=== PATIENT | female | born 1945 | race Caucasian/White ===

== ENCOUNTER → 2016-08-23 | Outpatient (CLI) | payer MEDICARE ==
--- NOTE | 2016-08-23 12:43 | US ---
EXAM DESCRIPTION: US LOWER EXTREMITY VEINS LIMITED/UNILATERAL/FOLLOW UP CLINICAL HISTORY: 71 y/o F, EDEMA COMPARISON: None. FINDINGS: Grayscale, spectral Doppler and color Doppler imaging of the left lower extremity venous structures was performed. Static images were saved to the patient's medical record. Normal compressibility and color Doppler flow noted within the left lower extremity venous structures. IMPRESSION: Negative for DVT within the left lower extremity. Electronically signed by: Dante Mathew MD 08/23/2016 12:41
== END ==
LOC: US 11:12
PROVIDERS: ATTEND Family Medicine
DX: R60.0 Localized edema (principal)

== ENCOUNTER → 2016-08-30 | Outpatient (CLI) | payer MEDICARE ==
--- NOTE | 2016-08-30 09:27 | RAD ---
EXAM DESCRIPTION: XR PELVIS 3 OR MORE VIEWS CLINICAL HISTORY: PELVIC PAIN COMPARISON: 24 February 2016. TECHNIQUE: AP pelvis and bilateral hips. FINDINGS: Mild degenerative changes are observed in the pubic symphysis. No fracture or dislocation is seen. No significant degenerative change is observed. A small bone island is seen overlying the left sacral ala. When direct comparison is made to the previous exam I see no significant interval change. IMPRESSION: Mild degenerative changes are observed. No interval change is noted. Electronically signed by: Tee Booker MD 08/30/2016 09:25
--- NOTE | 2016-08-30 10:19 | RAD ---
EXAM DESCRIPTION: XR TIBIA FIBULA 2 VIEWSXR TIBIA FIBULA 2 VIEWS CLINICAL HISTORY: 71 y/o ,F, PAIN IN LOWER LIMB COMPARISON: MRI from January 14, 2013 IMPRESSION: Evidence of prior medial tibial plateau impaction fracture. This results in medial proximal tibial cortical regularity. No evidence of acute fracture within the left tibia or fibula on today's study. Electronically signed by: Dante Mathew MD 08/30/2016 10:17
== END ==
LOC: RAD 07:55
PROVIDERS: ATTEND Orthopaedic Surgery
DX: M25.552 Pain in left hip (principal); M79.662 Pain in left lower leg; M12.88 Other specific arthropathies, not elsewhere classified, other specified site

== ENCOUNTER → 2016-09-13 | Outpatient (CLI) | payer MEDICARE | LOC: LAB.O 10:04 | PROVIDERS: ATTEND Orthopaedic Surgery | DX: M25.862 Other specified joint disorders, left knee (principal) ==

== ENCOUNTER → 2016-09-14 | Outpatient (CLI) | payer MEDICARE ==
--- NOTE | 2016-09-14 14:22 | MRI ---
EXAM DESCRIPTION: MRI left knee without and with IV contrast CLINICAL HISTORY: 71 y/o F, knee pain, mass COMPARISON: None TECHNIQUE: Noncontrast MR imaging left knee standard protocol FINDINGS: There is advanced chondrosis up to grade 4 throughout the medial tibiofemoral compartment left knee with subchondral edema and cystic change in the medial tibial plateau. Similar but less severe changes in the medial femoral condyle. There is diffuse degeneration the medial meniscus with free edge truncation volume loss and fraying and partial medial extrusion. There are postsurgical changes related to apparent previous resection of a region in the medial aspect proximal tibial metaphysis. There is edema in this area but no aggressive bone destruction is noted. The edema may be extending from the subchondral reactive changes from knee arthrosis. There is only mild enhancement at the resection site likely granulation tissue and reactive tissue/scar. No definite focal mass. There is evidence of grade 4 chondral fissuring in the lateral patellar facet and a dorsal patellar defect area. Overall mild patellofemoral osteoarthrosis. Several areas of grade 4 chondral fissuring are noted in the lateral tibiofemoral compartment as well. Extensor tendons are intact. Cruciate ligaments are intact. A large portion of the posterior horn medial meniscus is absent likely postsurgical. Prominent degenerative signal anterior horn lateral meniscus without major tear. 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
== END ==
LOC: MRI 08:07
PROVIDERS: ATTEND Orthopaedic Surgery
DX: M25.862 Other specified joint disorders, left knee (principal); M17.12 Unilateral primary osteoarthritis, left knee; M94.8X6 Other specified disorders of cartilage, lower leg; Z98.890 Other specified postprocedural states

== ENCOUNTER → 2016-10-24 | Outpatient (CLI) | payer MEDICARE ==
--- NOTE | 2016-10-24 10:14 | MRI ---
Procedure: MR LUMBAR SPINE WITHOUT IV CONTRAST Exam Date: 10/24/2016 9:16 AM CDT Ordering Provider: TENISHA NAVA Clinical Indication: LUMBAR RADICULOPATHY Comparison: None Technique: Multiplanar, multisequence MR images of the lumbar spine were obtained. Findings: No evidence of vertebral body compression deformity or acute fracture. Disc desiccation with degenerative disc space height loss greatest at L5-S1. There is also mild disc space height loss at L3-L4 and L4-L5. Spinal cord terminates at the L1-L2 level and is normal in signal morphology. Cauda equina separate appropriately. T12-L1: Unremarkable. L1-L2: Trace disc bulge with mild facet arthrosis. No stenosis. L2-L3: Trace disc bulge asymmetric to the left with mild left foraminal component. No spinal canal or foraminal stenosis. L3-L4: Mild circumferential disc bulge with small bilateral foraminal components. No spinal canal stenosis. No facet arthrosis. Mild bilateral neural foraminal stenosis. L4-L5: Broad-based disc bulge without focal protrusion. No significant facet arthrosis. No foraminal or spinal canal stenosis. L5-S1: Broad-based disc bulge and mild facet arthrosis. No focal disc herniation. There is resultant moderate right neural foraminal stenosis. Left neural foramen is patent. Prevertebral and paravertebral soft tissues are unremarkable. Impression: Multilevel/multifactorial lumbar spondylosis without high-grade spinal canal or foraminal stenosis. There is varying degrees of neural foraminal stenosis as outlined above. Electronically signed by: Sawyer Ribera MD 10/24/2016 10:13 AM CDT
== END | disposition home or self-care (01) ==
LOC: MRI 09:04
PROVIDERS: ATTEND Physical Medicine & Rehabilitation
DX: M54.16 Radiculopathy, lumbar region (principal)

== ENCOUNTER → 2017-01-19 | Outpatient (CLI) | payer MEDICARE | END | disposition home or self-care (01) | LOC: GMAJ 18:10 | PROVIDERS: ATTEND Family Medicine | DX: M79.671 Pain in right foot (principal); R23.3 Spontaneous ecchymoses ==

== ENCOUNTER 2017-04-26 16:25 | Emergency (ER) | payer MEDICARE ==
--- NOTE | 2017-04-26 17:05 | ED.PDOC ---
History of Present Illness - General Chief Complaint: Lower Extremity Injury Stated Complaint: Increased pain/swelling L knee, 3mo s/p TKR Time Seen by Provider: 04/26/17 16:40 Source: patient, RN notes reviewed, Vital Signs reviewed Exam Limitations: no limitations - History of Present Illness Initial Comments: Patient comes in with c/o increased pain and swelling in her L knee. She had a total knee replacement almost 3 months ago. She is having pain and tightness behind her knee. Her surgeon told her to come in and get checked for a blood clot. No CP or SOB. Occurred: other - over the past several days Pain - Lower Extremity: moderate: Left Knee Method of Injury: other - Surgery January 31 2017 - total knee replacement Improving Factors: nothing Worsening Factors: movement Allergies/Adverse Reactions: Allergies Ketorolac Tromethamine [From Toradol] Allergy (Verified 10/17/14 09:03) Penicillins Allergy (Verified 10/17/14 09:03) Tetanus Toxoid Allergy (Verified 10/17/14 09:03) Morphine Adverse Reaction (Mild, Verified 10/17/14 09:03) Headache Home Medications: Ambulatory Orders Carvedilol Phosphate [Coreg Cr] 40 mg PO DAILY #0 11/28/12 Dicyclomine HCl [Bentyl] 20 mg PO QID #0 11/28/12 Diphenoxylate W/ Atropine [Lomotil] 2.5 mg PO PRN #0 11/28/12 Lansoprazole 30 mg PO DAILY #0 11/28/12 Nifedipine [Nifediac cc] 30 mg PO DAILY #0 11/28/12 Pravastatin Sodium 40 mg PO DAILY #0 11/28/12 Promethazine Tab (ER Disp) [Phenergan Tab (ER Dispense)] 25 mg PO PRN #0 Calcitonin (Youngwood) [Calcitonin Youngwood] 1 spray SCHUYLER BEDTIME 06/11/14 Loperamide Cap [Imodium Cap] 4 mg PO QID PRN #20 cap 06/12/14 Lisinopril 40 mg PO DAILY 10/17/14 levoFLOXacin [Levaquin] 500 mg PO DAILY #10 tab 10/20/14 Review of Systems - Review of Systems Constitutional: States: no symptoms reported Respiratory: States: no symptoms reported. Denies: short of breath Cardiology: States: no symptoms reported Gastrointestinal/Abdominal: States: no symptoms reported Musculoskeletal: States: see HPI, joint pain - L knee, joint swelling - L knee Skin: States: no symptoms reported Neurological: States: no symptoms reported All other Systems: No Change from Baseline Past Medical History (General) - Patient Medical History Hx Seizures: No Hx Stroke: No Hx Asthma: No Hx of COPD: No Hx Cardiac Disorders: Yes - CHF: on Lisinopril Hx Congestive Heart Failure: No Hx Pacemaker: No Hx Hypertension: Yes Hx Diabetes: No Hx Gastroesophageal Reflux: Yes Hx MRSA: No - Vaccination History Hx Influenza Vaccination: Yes - 2013 - Social History Hx Tobacco Use: No Hx Alcohol Use: No Hx Substance Use: No Hx Physical Abuse: No Hx Emotional Abuse: No Family Medical History - Family History Father Living Status: Hx Family Hypertension: Yes Hx Family Diabetes: Yes Son Living Status: Still Living Hx Family Asthma: Yes Hx Family Congestive Heart Failure: No Hx Family Hypertension: No Hx Family Stroke: No Hx Cardiac Disease: No Hx Family Diabetes: No Hx Family Cancer: No Physical Exam - Physical Exam General Appearance: Alert, Comfortable, No apparent distress, Well Developed, Well Groomed, Well Hydrated, Well Nourished Neck: supple, normal inspection Cardiovascular/Respiratory: regular rate, rhythm, no M/R/G, normal peripheral pulses, normal breath sounds, no respiratory distress Leg: normal inspection - except mild swelling, non-tender, no evidence of injury Knee: joint effusion, limited ROM - due to pain and swelling, pain, soft tissue tenderness, swelling, other - L knee is very swollen w/ posterior tenderness. No erythema or warmth. Ankle: non-tender, no evidence of injury, normal ROM, other - 1+ edema Foot: non-tender, no evidence of injury, normal ROM, swelling Neuro/Tendon: normal sensation, normal motor functions, normal tendon functions Mental Status: alert, oriented x 3 Skin: normal color, warm/dry Progress - EKG/XRAY/CT Xray Comments: LLE doppler: no DVT per Radiologist Departure - Departure Clinical Impression: Posterior left knee pain, Swelling of knee joint, left Time of Disposition: 17:35 Disposition: Discharge to Home or Self Care Condition: Good Departure Forms: ED Discharge - Pt. Copy, Patient Portal Self Enrollment Instructions: DI for Knee Pain Diet: resume usual diet Activity: increase activity as tolerated Referrals: Uday Moy MD [Primary Care Provider] - 1-2 Weeks Home Medications: Ambulatory Orders Carvedilol Phosphate [Coreg Cr] 40 mg PO DAILY #0 11/28/12 Dicyclomine HCl [Bentyl] 20 mg PO QID #0 11/28/12 Diphenoxylate W/ Atropine [Lomotil] 2.5 mg PO PRN #0 11/28/12 Lansoprazole 30 mg PO DAILY #0 11/28/12 Nifedipine [Nifediac cc] 30 mg PO DAILY #0 11/28/12 Pravastatin Sodium 40 mg PO DAILY #0 11/28/12 Promethazine Tab (ER Disp) [Phenergan Tab (ER Dispense)] 25 mg PO PRN #0 Calcitonin (Youngwood) [Calcitonin Youngwood] 1 spray SCHUYLER BEDTIME 06/11/14 Loperamide Cap [Imodium Cap] 4 mg PO QID PRN #20 cap 06/12/14 Lisinopril 40 mg PO DAILY 10/17/14 levoFLOXacin [Levaquin] 500 mg PO DAILY #10 tab 10/20/14 Additional Instructions: Rest, ice and elevation
--- NOTE | 2017-04-26 17:26 | US ---
EXAM DESCRIPTION: Venous,Lower Extremity LT CLINICAL HISTORY: increased swelling/pain s/p TKR COMPARISON: None Available. TECHNIQUE: Left lower extremity venous duplex utilizing grayscale, color Doppler, and spectral pulse Doppler imaging. FINDINGS: There is no DVT identified. No filling defects or obstruction is noted. No evidence of wall thickening is seen. There is normal color flow observed with good flow augmentation. All deep veins compress normally. The proximal portion of the greater saphenous vein is patent as well. IMPRESSION: Negative for DVT Electronically signed by: Tang Gore MD 04/26/2017 5:24 PM CDT
[2017-04-26 17:53] VITALS: TEMP 98.4
[2017-04-26 17:56] VITALS: BP 139/84; O2SAT 100
== END 2017-04-26 17:16 | disposition home or self-care (01) ==
LOC: ER 16:25
DX: M25.562 Pain in left knee (principal); M25.462 Effusion, left knee; I11.0 Hypertensive heart disease with heart failure; I50.9 Heart failure, unspecified; K21.9 Gastro-esophageal reflux disease without esophagitis; Z96.652 Presence of left artificial knee joint; Z79.899 Other long term (current) drug therapy; Z88.6 Allergy status to analgesic agent; Z88.7 Allergy status to serum and vaccine

== ENCOUNTER → 2017-05-01 | Outpatient (CLI) | payer MEDICARE | END | disposition home or self-care (01) | LOC: GMAJ 11:01 | PROVIDERS: ATTEND Family Medicine | DX: I10 Essential (primary) hypertension (principal) ==

== ENCOUNTER → 2017-07-21 | Outpatient (CLI) | payer MEDICARE | LOC: GMAJ 11:34 | PROVIDERS: ATTEND Family Medicine | DX: R06.02 Shortness of breath (principal) ==

== ENCOUNTER → 2017-09-04 | Outpatient (CLI) | payer MEDICARE | END | disposition home or self-care (01) | LOC: GMAJ 11:01 | PROVIDERS: ATTEND Family Medicine | DX: E78.00 Pure hypercholesterolemia, unspecified (principal); I10 Essential (primary) hypertension ==

== ENCOUNTER → 2018-01-31 | Outpatient (CLI) | payer MEDICARE | LOC: GMAJ 10:47 | PROVIDERS: ATTEND Family Medicine | DX: I10 Essential (primary) hypertension (principal) ==

== ENCOUNTER 2018-08-09 08:30 | Emergency (ER) | payer MEDICARE ==
[2018-08-09] MEDS ORDERED: ASPIRIN (CHEWABLE) 81 MG TAB PO ONE (08:48)
[2018-08-09] MEDS ORDERED: NITROGLYCERIN 2% 1 GM UD TOP ONE (08:48)
[2018-08-09] MEDS ORDERED: IPRATROPIUM/ALBUTEROL 3 ML VIAL NEB ONE (08:56)
--- NOTE | 2018-08-09 09:00 | ED.PDOC ---
History of Present Illness - General Chief Complaint: Chest Pain/NH Stated Complaint: chest pain Time Seen by Provider: 08/09/18 08:48 Source: patient Exam Limitations: no limitations - History of Present Illness Initial Comments: 73 yo with h/o CHF presents with two days of dyspnea and intermittent chest pain. Dyspnea is constant but worse when laying down. The chest pain is cramping in nature, just to the left of the sternum with radiation to the left shoulder and back, only occurs when she is laying down, clears up when she sits up, no previous episodes of the chest pain, no other associated symptoms. Patient denies having had a previous NH. She has chronic bipedal edema but she says she does not take a diuretic. She takes Xarelto for atrial fibrillation but she does not stay in atrial fibrillation chronically. No history of tobacco use. No other complaints. Timing/Duration: other - two days Severity: mild Improving Factors: other - sitting up Worsening Factors: other - layng down Associated Symptoms: chest pain, shortness of breath Allergies/Adverse Reactions: Allergies Ketorolac Tromethamine [From Toradol] Allergy (Verified 10/17/14 09:03) Penicillins Allergy (Verified 10/17/14 09:03) Tetanus Toxoid Allergy (Verified 10/17/14 09:03) Morphine Adverse Reaction (Mild, Verified 10/17/14 09:03) Headache Home Medications: Ambulatory Orders Dicyclomine HCl [Bentyl] 20 mg PO QID #0 11/28/12 Diphenoxylate W/ Atropine [Lomotil] 2.5 mg PO PRN #0 11/28/12 Loperamide Cap [Imodium Cap] 4 mg PO QID PRN #20 cap 06/12/14 Lisinopril 40 mg PO DAILY 10/17/14 Alendronate Sodium [Fosamax] 70 mg PO WKLY 08/09/18 Aspirin 325 mg PO BID PRN 08/09/18 Carvedilol Phosphate [Coreg Cr] 80 mg PO DAILY 08/09/18 Cholecalciferol [Vitamin D3] 400 unit PO DAILY 08/09/18 Esomeprazole Magnesium [Nexium] 40 mg PO DAILY 08/09/18 Furosemide [Lasix] 20 mg PO QAM #2 tab 08/09/18 Pravastatin Sodium 40 mg PO BEDTIME 12/27/18 Rivaroxaban [Xarelto] 20 mg PO DAILY 08/09/18 Tramadol HCl 50 mg PO Q4H 08/09/18 Review of Systems - Review of Systems Constitutional: States: no symptoms reported EENTM: States: no symptoms reported Respiratory: States: see HPI Cardiology: States: see HPI Gastrointestinal/Abdominal: States: no symptoms reported Genitourinary: States: no symptoms reported Musculoskeletal: States: no symptoms reported Skin: States: no symptoms reported Neurological: States: no symptoms reported Endocrine: States: no symptoms reported Hematologic/Lymphatic: States: no symptoms reported Past Medical History (General) - Patient Medical History Hx Seizures: No Hx Stroke: No Hx Asthma: No Hx of COPD: No Hx Cardiac Disorders: Yes - CHF: on Lisinopril, A-FIB Hx Congestive Heart Failure: No Hx Pacemaker: No Hx Hypertension: Yes Hx Diabetes: No Hx Gastroesophageal Reflux: Yes Hx MRSA: No - Vaccination History Hx Influenza Vaccination: Yes Hx Pneumococcal Vaccination: Yes - Social History Hx Tobacco Use: No Hx Alcohol Use: No Hx Substance Use: No Hx Physical Abuse: No Hx Emotional Abuse: No Family Medical History - Family History Father Living Status: Hx Family Hypertension: Yes Hx Family Diabetes: Yes Son Living Status: Still Living Hx Family Asthma: Yes Hx Family Congestive Heart Failure: No Hx Family Hypertension: No Hx Family Stroke: No Hx Cardiac Disease: No Hx Family Diabetes: No Hx Family Cancer: No Physical Exam - Physical Exam General Appearance: Alert Eye Exam: bilateral normal Ears, Nose, Throat: normal ENT inspection Neck: non-tender, full range of motion, supple Respiratory: other - decreased breath sounds in bilateral lower lobes. No rales/rhonchi/wheezing Cardiovascular/Chest: regular rate, rhythm, other - trace bipedal edema Gastrointestinal/Abdominal: normal bowel sounds, non tender, soft Back Exam: normal inspection, no CVA tenderness Extremity: normal range of motion, non-tender, pedal edema - trace Neurologic: no motor/sensory deficits, alert, normal mood/affect, oriented x 3 Skin Exam: normal color Lymphatic: no adenopathy Progress - Progress Progress: 08/09/18 12:24 Patient's symptoms resolved after Lasix 20 mg IV x one. She was not going to be able to make it to the pharmacy today so she was given one more dose of Lasix and a two day supply with directions to see her regular doctor in the next two days. Departure - Departure Clinical Impression: Congestive heart failure Disposition: Discharge to Home or Self Care Condition: Good Departure Forms: ED Discharge - Pt. Copy, Patient Portal Self Enrollment Instructions: DI for Chest Pain Diet: other - as per your regular doctor Referrals: Uday Moy MD [Primary Care Provider] - 1-2 Weeks Prescriptions: Furosemide [Lasix] 20 mg PO QAM #2 tab Home Medications: Ambulatory Orders Dicyclomine HCl [Bentyl] 20 mg PO QID #0 11/28/12 Diphenoxylate W/ Atropine [Lomotil] 2.5 mg PO PRN #0 11/28/12 Loperamide Cap [Imodium Cap] 4 mg PO QID PRN #20 cap 06/12/14 Lisinopril 40 mg PO DAILY 10/17/14 Alendronate Sodium [Fosamax] 70 mg PO WKLY 08/09/18 Aspirin 325 mg PO BID PRN 08/09/18 Carvedilol Phosphate [Coreg Cr] 80 mg PO DAILY 08/09/18 Cholecalciferol [Vitamin D3] 400 unit PO DAILY 08/09/18 Esomeprazole Magnesium [Nexium] 40 mg PO DAILY 08/09/18 Furosemide [Lasix] 20 mg PO QAM #2 tab 08/09/18 Pravastatin Sodium 40 mg PO BEDTIME 08/09/18 Rivaroxaban [Xarelto] 20 mg PO DAILY 08/09/18 Tramadol HCl 50 mg PO Q4H 08/09/18 Additional Instructions: See your regular doctor in the next two days regarding possible Lasix use in the future. Return to the [facility] immediately for shortness of breath or chest pain. Take your medications as prescribed.
[2018-08-09] MEDS ORDERED: FUROSEMIDE INJ 20 MG/2 ML VIAL IV ONE ×2 (09:03→11:49)
--- NOTE | 2018-08-09 09:39 | RAD ---
EXAM DESCRIPTION: Chest,1 View CLINICAL HISTORY: dyspnea COMPARISON: Chest radiograph dated January 19, 2017 TECHNIQUE: Single upright portable frontal view the chest. FINDINGS: Calcific atherosclerosis and mild tortuosity noted of the thoracic aorta. Cardiac silhouette shows borderline cardiomegaly with central pulmonary vascular congestion and mild interstitial edema. Increased opacities within the bilateral lower lung zones may represent early pulmonary edema. Underlying infiltrate cannot be entirely excluded. Blunting of the bilateral costophrenic angles, most compatible with small bilateral pleural effusions, left greater than right. Opacity in the left lung base may represent compressive atelectasis from adjacent pleural effusion versus underlying infiltrate. Is no pneumothorax. No acute osseous abnormality. Included upper abdomen shows a paucity of bowel gas. IMPRESSION: 1. Borderline cardiomegaly with central pulmonary vascular congestion and mild interstitial edema, compatible with congestive heart failure. 2. Small bilateral pleural effusions, left greater than right. 3. Opacities in the bilateral lower lung zones may represent early pulmonary edema. Underlying infiltrate and/or atelectasis are considerations. Electronically signed by: Tee Nielsen MD 08/09/2018 9:38 AM [facility]
[2018-08-09] MEDS ORDERED: POTASSIUM CHLORIDE 20 MEQ TAB PO ONE (12:25)
[2018-08-09 12:45] VITALS: BP 154/90; TEMP 98; O2SAT 92
== END 2018-08-09 12:50 | disposition home or self-care (01) ==
LOC: ER 08:30 → MS 09:26 → UNDOADMOB 09:26 → ER 12:50
DX: I50.9 Heart failure, unspecified (principal); I11.0 Hypertensive heart disease with heart failure; K21.9 Gastro-esophageal reflux disease without esophagitis; I48.91 Unspecified atrial fibrillation; Z79.899 Other long term (current) drug therapy; Z79.82 Long term (current) use of aspirin; Z88.0 Allergy status to penicillin; Z88.5 Allergy status to narcotic agent; Z88.8 Allergy status to other drugs, medicaments and biological substances; Z88.7 Allergy status to serum and vaccine; Z79.01 Long term (current) use of anticoagulants
CPT/HCPCS: 36415; 71045; 80053; 82550; 82553; 83880; 84484; 85025; 85610; 85730; 93005; 94640; J1940; J7620

== ENCOUNTER 2018-10-21 13:48 | Emergency (ER) | payer MEDICARE ==
[2018-10-21 14:06] VITALS: TEMP 98.9
--- NOTE | 2018-10-21 14:13 | ED.PDOC ---
History of Present Illness - General Chief Complaint: Lower Extremity Injury Stated Complaint: fall Time Seen by Provider: 10/21/18 14:11 Source: patient, RN notes reviewed, Vital Signs reviewed Exam Limitations: no limitations Additional Information: 73 YEAR OLD COMPLAINTS OF PAIN IN HER RIGHT FOOT AFTER A FALL AT HOME SHE SLIPPED BACK FROM A LOVE SEAT ON WHICH SHE WAS STANDING TO CHANGE HER CLOCK INJURY LIMITED TOT HE RIGHT FOOT SHE HAS A PRE EXISTING VALGUS DEFORMITY OF HER FOOT AND PES PLANUS PHYSICAL EXAM AWAKE ALERT NO HEAD NECK CHEST OR BACK INJURY LEFT KNEE H/O TOTAL KNEE REPLACEMENT RIGHT FOOT NO SWELLING NO BRUISING NOTED TENDER OVER M ID FOOT NO ANKLE TENDERNESS OVER THE MALLEOLUS NO NEUROVASCULAR DEFICIT - History of Present Illness Timing/Duration: 4-6 hours Severity: moderate Improving Factors: immobilization Worsening Factors: movement Associated Symptoms: denies symptoms Allergies/Adverse Reactions: Allergies Ketorolac Tromethamine [From Toradol] Allergy (Verified 10/17/14 09:03) Penicillins Allergy (Verified 10/17/14 09:03) Tetanus Toxoid Allergy (Verified 10/17/14 09:03) Morphine Adverse Reaction (Mild, Verified 10/17/14 09:03) Headache Home Medications: Ambulatory Orders Loperamide Cap [Imodium Cap] 4 mg PO QID PRN #20 cap 06/12/14 Lisinopril 40 mg PO DAILY 10/17/14 Carvedilol Phosphate [Coreg Cr] 80 mg PO DAILY 08/09/18 Cholecalciferol [Vitamin D3] 400 unit PO DAILY 08/09/18 Esomeprazole Magnesium [Nexium] 40 mg PO DAILY 08/09/18 Pravastatin Sodium 40 mg PO BEDTIME 08/09/18 Tramadol HCl 50 mg PO Q4H PRN 08/09/18 Acetamin W/Cod #3 Tab [Tylenol w/CODEINE #3] 1 ea PO Q6HR PRN #40 tab 10/21/18 Dicyclomine HCl [Bentyl] 20 mg PO QID PRN 10/21/18 Diphenoxylate W/ Atropine [Lomotil] 2.5 mg PO PRN PRN 10/21/18 Review of Systems - Review of Systems Constitutional: States: no symptoms reported EENTM: States: no symptoms reported Respiratory: States: no symptoms reported Cardiology: States: no symptoms reported Gastrointestinal/Abdominal: States: no symptoms reported Genitourinary: States: no symptoms reported Skin: States: no symptoms reported Neurological: States: no symptoms reported Endocrine: States: no symptoms reported Hematologic/Lymphatic: States: no symptoms reported Past Medical History (General) - Patient Medical History Hx Seizures: No Hx Stroke: No Hx Asthma: No Hx of COPD: No Hx Cardiac Disorders: Yes - CHF: on Lisinopril, A-FIB Hx Congestive Heart Failure: No Hx Pacemaker: No Hx Hypertension: Yes Hx Diabetes: No Hx Gastroesophageal Reflux: Yes Hx MRSA: No Surgical History: appendectomy, Hysterectomy - Vaccination History Hx Tetanus, Diphtheria Vaccination: No Hx Influenza Vaccination: Yes Hx Pneumococcal Vaccination: Yes - Social History Hx Tobacco Use: No Hx Alcohol Use: No Hx Substance Use: No Hx Physical Abuse: No Hx Emotional Abuse: No - Female History Patient is a Female of Child Bearing Age (10 -59 yrs old): No Family Medical History - Family History Father Living Status: Hx Family Hypertension: Yes Hx Family Diabetes: Yes Son Living Status: Still Living Hx Family Asthma: Yes Hx Family Congestive Heart Failure: No Hx Family Hypertension: No Hx Family Stroke: No Hx Cardiac Disease: No Hx Family Diabetes: No Hx Family Cancer: No Physical Exam - Physical Exam General Appearance: Alert, Comfortable Eye Exam: bilateral normal Ears, Nose, Throat: hearing grossly normal, normal ENT inspection, normal pharynx Neck: non-tender, full range of motion, supple Respiratory: chest non-tender, lungs clear, normal breath sounds Cardiovascular/Chest: normal peripheral pulses, regular rate, rhythm, no edema, no gallop Peripheral Pulses: radial,right: 2+, radial,left: 2+, femoral,right: 2+, femoral,left: 2+ Gastrointestinal/Abdominal: normal bowel sounds, non tender Extremity: normal range of motion, non-tender, normal inspection, other - tender right foot Neurologic: shareholder II-XII nml as tested, no motor/sensory deficits, alert, normal mood/affect, oriented x 3 Progress - Results/Orders Results/Orders: CT LOWER EXTREMITY RIGHT ANKLE AND FOOT REPORT THERE IS FRACTURE OF DISTAL FIBULA MINIMAL DISPLACEMENT Departure - Departure Clinical Impression: Fracture of lower extremity, Fracture of fibula, distal, right, closed Time of Disposition: 16:22 Disposition: Discharge to Home or Self Care Condition: Good Departure Forms: ED Discharge - Pt. Copy, Patient Portal Self Enrollment Instructions: DI for Leg Pain Diet: resume usual diet Referrals: Uday Moy MD [Primary Care Provider] - 1-2 Weeks Prescriptions: Acetamin W/Cod #3 Tab [Tylenol w/CODEINE #3] 1 ea PO Q6HR PRN #40 tab PRN Reason: Mild To Moderate Pain Home Medications: Ambulatory Orders Loperamide Cap [Imodium Cap] 4 mg PO QID PRN #20 cap 06/12/14 Lisinopril 40 mg PO DAILY 10/17/14 Carvedilol Phosphate [Coreg Cr] 80 mg PO DAILY 08/09/18 Cholecalciferol [Vitamin D3] 400 unit PO DAILY 08/09/18 Esomeprazole Magnesium [Nexium] 40 mg PO DAILY 08/09/18 Pravastatin Sodium 40 mg PO BEDTIME 08/09/18 Tramadol HCl 50 mg PO Q4H PRN 08/09/18 Acetamin W/Cod #3 Tab [Tylenol w/CODEINE #3] 1 ea PO Q6HR PRN #40 tab 10/21/18 Dicyclomine HCl [Bentyl] 20 mg PO QID PRN 10/21/18 Diphenoxylate W/ Atropine [Lomotil] 2.5 mg PO PRN PRN 10/21/18 Comments: NON WEIGHT BEARING RIGHT LEG PLACED IN A SHORT LEG SPLINT FOLLOW UP WITH ORTHO DR CONRAD
[2018-10-21] MEDS ORDERED: KETOROLAC TROMETHAMINE INJ 60 MG/2 ML VIAL IM ONE (14:14)
[2018-10-21] MEDS ORDERED: MORPHINE SULFATE INJ 10 MG/ML VIAL IM ONE (14:21)
[2018-10-21] MEDS ORDERED: ONDANSETRON INJ 4 MG/2 ML VIAL IM ONE (14:21)
--- NOTE | 2018-10-21 15:09 | RAD ---
PROCEDURE: XR Right Foot Complete, 3 or More Views CLINICAL INDICATION: The patient is 73 years years old, Female; fall TECHNIQUE: Frontal, lateral and oblique views of the right foot. COMPARISON: No relevant prior studies available. FINDINGS: BONES/JOINTS: There is very severe generalized osteoporosis. No definite acute fractures are seen. Mild deformity of the distal fibula may reflect remote fracture. The long axis of the talus passes markedly plantar to the long axis of the first metatarsal bone consistent with a severe pes planus deformity. 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 There is a tiny noninflamed plantar calcaneal enthesophyte. There is no evidence of acute fracture or osteolytic/osteoblastic lesions. There is no evidence of subluxation or dislocation. The joint spaces are preserved. There is no evidence of degenerative osteophytosis or sclerosis. The ankle mortise is symmetric with a smooth talar dome and no evidence of widening of the distal tibiofibular syndesmosis. The talus appears deformed and likely partially collapsed although the talocalcaneal angle appears preserved. The subtalar joint demonstrates an irregular appearance, possibly erosive. There is no evidence of an ankle joint effusion. SOFT TISSUES: There is diffuse edema in the soft tissues about the tarsus and hindfoot. No evidence of significant soft tissue calcifications. No radiopaque foreign bodies. OTHER FINDINGS: Thickening of the nail of the great toe suggests onychomycosis. IMPRESSION: 1. There is very severe generalized osteoporosis without definite acute fractures. 2. Severe pes planus deformity. 3. Severe deformity of the talus and irregularity in the appearance of the subtalar joint. An erosive arthritis cannot be excluded. Consider CT for more optimal assessment of the talus and subtalar joint. Electronically signed by: Kaylee Garcia MD 10/21/2018 3:06 PM CDT
[2018-10-21 15:12] VITALS: BP 131/65
--- NOTE | 2018-10-21 16:13 | CT ---
EXAM DESCRIPTION: Lower Extremity CLINICAL HISTORY: 73 years Female assess right talus, abnormal appearance of the talus on plain film COMPARISON: None. TECHNIQUE: Contiguous axial CT images obtained through the right foot without IV contrast. Reformatted images obtained. This exam was performed according to our department optimization program which includes automated exposure control, adjustment of the mA and/or kv according to patient size and/or use of iterative reconstruction technique. FINDINGS: There is bony demineralization. There is an acute appearing fracture along the anterior aspect of the distal fibula with associated soft tissue swelling. There is subchondral sclerosis and cyst formation involving the talocalcaneal joint. Talar dome appears intact without evidence of acute fracture. Geode formation is also present along the distal fibula. The distal tibia appears intact. There is small amount of subcutaneous stranding and edema along the plantar surface of the foot. No significant joint effusion is present. IMPRESSION: There is an acute fracture involving the anterior aspect of the distal fibula with associated soft tissue swelling and stranding Pes planus with degenerative changes at the talocalcaneal joint space resulting in geode formation Electronically signed by: Maryuri Skaggs MD 10/21/2018 4:10 PM CDT
[2018-10-21 16:44] VITALS: O2SAT 95
== END 2018-10-21 16:43 | disposition home or self-care (01) ==
LOC: ER 13:48
DX: S82.831A Other fracture of upper and lower end of right fibula, initial encounter for closed fracture (principal); I11.0 Hypertensive heart disease with heart failure; K21.9 Gastro-esophageal reflux disease without esophagitis; I50.9 Heart failure, unspecified; I48.91 Unspecified atrial fibrillation; W01.0XXA Fall on same level from slipping, tripping and stumbling without subsequent striking against object, initial encounter; Y92.009 Unspecified place in unspecified non-institutional (private) residence as the place of occurrence of the external cause; Z79.899 Other long term (current) drug therapy; Z88.8 Allergy status to other drugs, medicaments and biological substances; Z88.0 Allergy status to penicillin; Z88.7 Allergy status to serum and vaccine; Z88.5 Allergy status to narcotic agent
CPT/HCPCS: 73630; 73700; J2270; J2405

== ENCOUNTER 2020-01-19 21:40 | Emergency (ER) | payer MEDICARE ==
[2020-01-19] MEDS ORDERED: SODIUM CHLORIDE 0.9% (FLUSH) 10 ML SYG IV PRN (22:05)
[2020-01-19] MEDS ORDERED: DICYCLOMINE HCL INJ 20 MG/2 ML AMP IM ONE (22:07)
[2020-01-19] MEDS ORDERED: SODIUM CHLORIDE 0.9% 1000ML 500 ML IVS ONE (22:37)
--- NOTE | 2020-01-19 22:38 | RAD ---
EXAM DESCRIPTION: XR CHEST, 1 VIEW CLINICAL HISTORY: short of breath TECHNIQUE: Single frontal view of the chest is submitted. COMPARISON: 08/09/2018 FINDINGS: Heart: The cardiothoracic silhouette is within normal limits. Lungs: No focal consolidation. Mediastinum: Thoracic aortic atherosclerosis. Pleura: No appreciable effusion. No pneumothorax. Bones: Intact Upper abdomen: Unremarkable IMPRESSION: No acute disease. Electronically signed by: Josseline Hills MD 01/19/2020 10:37 PM CDT
[2020-01-19] MEDS ORDERED: fentaNYL CITRATE INJ 50 MCG/ML 2 ML AMP IV ONE (22:46)
[2020-01-20] MEDS ORDERED: levoFLOXacin 750MG IV 750 MG in PREMIX BAG 1 BAG IVPB ONE (00:49)
[2020-01-20] MEDS ORDERED: fentaNYL CITRATE INJ 50 MCG/ML 2 ML AMP IV ONE (00:50)
--- NOTE | 2020-01-20 01:17 | CT ---
CT abdomen and pelvis with contrast on 01/20/2020 CLINICAL INDICATION: Nausea and vomiting, generalized abdominal pain TECHNIQUE: Multiple axial images are obtained throughout the abdomen and pelvis following the administration of IV contrast. This exam was performed according to our departmental dose-optimization program, which includes automated exposure control, adjustment of the mA and/or kV according to patient size and/or use of iterative reconstruction technique. Total DLP is 845.98 mGy*cm. COMPARISON: 03/23/2018 FINDINGS: Abdomen: Mild cardiomegaly is noted. There is a trace right pleural effusion. There is minimal basilar atelectasis. Gallbladder is distended. There is apparent mild gallbladder wall thickening and/or pericholecystic fluid raising question of early changes of acute cholecystitis. Recommend follow-up right upper quadrant ultrasound. Duodenal diverticula are noted along the second portion of the duodenum. Solid abdominal organs are otherwise unremarkable. Vascular calcifications are noted. There is no abdominal adenopathy. There is no free fluid or free air within the abdomen. There is diverticulosis. There is a small umbilical hernia containing only fat. The abdominal portion of the GI tract is otherwise unremarkable. Pelvis: The patient is status post hysterectomy. There is no pelvic adenopathy. There is diverticulosis. There is wall thickening of the sigmoid colon in a region of diverticula with mild adjacent fat stranding consistent with mild acute sigmoid colon diverticulitis. This area is seen well on coronal images 46 through 73. There is no evidence of abscess or perforation. Pelvic portion of the GI tract is otherwise unremarkable. There is no free fluid in the pelvis. Degenerative changes are noted in the spine. IMPRESSION: 1. Findings consistent with mild acute sigmoid colon diverticulitis without evidence of abscess or perforation. 2. Distended gallbladder with an appearance raising a question of very early changes of acute cholecystitis, consider follow-up right upper quadrant ultrasound to better evaluate. Electronically signed by: Mina Junior 01/20/2020 1:16 AM CDT
--- NOTE | 2020-01-20 01:22 | ED.PDOC ---
History of Present Illness - General Chief Complaint: Chest Pain/CA Stated Complaint: a-fib rvr, nausea vomiting Time Seen by Provider: 01/19/20 23:11 Information Source: patient, RN notes reviewed, Vital Signs reviewed, EMS notes reviewed Exam Limitations: no limitations - History of Present Illness Initial Comments: Patient is a 74-year-old white female who presents with complaints of nausea and vomiting starting yesterday. Patient is noted that her heart was beating very fast and irregularly. Patient states she had an episode of this years ago and was on Eliquis for it but was taken off by her PCP due to bleeding. Patient complains of abdominal pain. Cramping in nature. Worsening. Nonradiating. Patient states that she has had problems with abdominal pain all her life. The symptoms are severe intensity. Abdominal Pain Onset Location: generalized abdomen Pain Radiation: no radiation Quality: severe, cramping, stabbing Timing/Duration: 24 hours Worsening Factors: nothing Associated Symptoms: nausea/vomiting Review of Systems - Review of Systems Constitutional: States: see HPI, malaise, weakness. Denies: chills, fever EENTM: States: no symptoms reported. Denies: eye pain, blurred vision Respiratory: States: no symptoms reported. Denies: cough, short of breath, stridor, wheezing Cardiology: States: no symptoms reported. Denies: chest pain, palpitations, syncope Gastrointestinal/Abdominal: States: see HPI, abdominal pain, diarrhea, nausea, vomiting. Denies: constipation Genitourinary: States: no symptoms reported. Denies: discharge, dysuria, frequency Musculoskeletal: States: no symptoms reported. Denies: back pain, neck pain Skin: States: no symptoms reported. Denies: change in color, rash Neurological: States: no symptoms reported. Denies: headache, numbness, tingli ng, weakness Endocrine: States: no symptoms reported Hematologic/Lymphatic: States: no symptoms reported All other Systems: No Change from Baseline Past Medical History (General) - Patient Medical History Hx Seizures: No Hx Stroke: No Hx Asthma: No Hx of COPD: No Hx Cardiac Disorders: Yes - CHF: on Lisinopril, A-FIB Hx Congestive Heart Failure: No Hx Pacemaker: No Hx Hypertension: Yes Hx Diabetes: No Hx Gastroesophageal Reflux: Yes Hx MRSA: No Surgical History: appendectomy, tonsillectomy, Hysterectomy - Vaccination History Hx Tetanus, Diphtheria Vaccination: No Hx Influenza Vaccination: Yes Hx Pneumococcal Vaccination: Yes - Social History Hx Tobacco Use: No Hx Alcohol Use: No Hx Substance Use: No Hx Physical Abuse: No Hx Emotional Abuse: No Family Medical History - Family History Father Living Status: Hx Family Hypertension: Yes Hx Family Diabetes: Yes Son Living Status: Still Living Hx Family Asthma: Yes Hx Family Congestive Heart Failure: No Hx Family Hypertension: No Hx Family Stroke: No Hx Cardiac Disease: No Hx Family Diabetes: No Hx Family Cancer: No Physical Exam - Physical Exam General Appearance: Alert, Anxious, Frail, Ill Appearing, Well Developed, Well Nourished Eyes, Ears, Nose, Throat Exam: PERRL/EOMI, normal ENT inspection, pharynx normal - Except for dry mucous membranes. 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 fib with RVR, ACS, pneumonia, bowel obstruction among others. 01/20/20 02:13 Patient with an elevated white count of 24,000 and a left shift. Additionally patient has lactic acid of 2.8 concerning for sepsis. Patient was initially afebrile on arrival. Just before departure her temperature has increased to 100 F. Chest x-ray unremarkable. CT scan does show diverticulitis as well as possible cholecystitis. Patient has been started on IV antibiotics and blood cultures were obtained. Plan transfer to [facility] for further care. I discussed this plan of care with the patient and her family and they voiced understanding and agreement with plan of care. Gilson Younger M.D. #[id number] - Results/Orders Results/Orders: 01/19/20 22:05 IV Care:Saline Lock per Protoc QSHIFT Telemetry .ONCE Sodium Chloride 0.9% (Flush) [Saline Flush Syringe] 10 ml IV PRN PRN EKG Stat Pulse Ox Stat Pulse Oximetry Assessment DAILY 01/20/20 00:20 Hold Metformin x 48Hrs [id number] 01/20/20 00:49 levoFLOXacin 750MG IV [Levaquin 750MG IV] 750 mg Premix Bag 1 bag IVPB ONCE Laboratory Results - last 24 hr 01/19/20 01/19/20 01/19/20 22:29 22:29 23:55 WBC 24.2 H* RBC 5.10 Hgb 12.6 Hct 39.9 MCV 78.3 L MCH 24.7 L MCHC 31.5 L RDW 18.2 H Plt Count 340 MPV 10.0 Absolute Neuts (auto) 21.70 H Absolute Lymphs (auto) 1.50 Absolute Monos (auto) 0.70 Absolute Eos (auto) 0.10 Absolute Basos (auto) 0.10 Neutrophils % 90.0 H Neutrophils % (Manual) 87.0 H Lymphocytes % 6.3 L Lymphocytes % (Manual) 8.0 Monocytes % 2.8 Monocytes % (Manual) 1.0 Eosinophils % 0.5 L Basophils % 0.4 Band Neutrophils 4.0 H Hypochromia 1+ Platelet Estimate Normal Microcytosis 1+ Ovalocytes 1+ PT 11.9 H INR 1.20 H PTT (SP) 21.4 L Sodium 143 Potassium 3.2 L Chloride 111 Carbon Dioxide 21 Anion Gap 14.2 BUN 21 H Creatinine 1.22 BUN/Creatinine Ratio 17.2 Random Glucose 155 H Serum Osmolality 291.1 Lactic Acid Calcium 9.2 Magnesium 1.7 L Creatine Kinase 39 CK-MB (CK-2) 2.0 CK-MB (CK-2) % Not Reportable Troponin I 0.03 B-Natriuretic Peptide 762.0 H* Urine Color Dk yellow H Urine Appearance Sl cloudy Urine pH 5.0 Ur Specific Shiro 1.015 Urine Protein Negative Urine Glucose (UA) Negative Urine Ketones Negative Urine Blood Negative Urine Nitrite Negative Urine Bilirubin Small H Urine Urobilinogen 2.0 H Ur Leukocyte Esterase Negative Urine RBC 0 Urine WBC 0 Ur Epithelial Cells 1-3 Amorphous Sediment 1+ Urine Bacteria Rare 01/20/20 00:00 WBC RBC Hgb Hct MCV MCH MCHC RDW Plt Count MPV Absolute Neuts (auto) Absolute Lymphs (auto) Absolute Monos (auto) Absolute Eos (auto) Absolute Basos (auto) Neutrophils % Neutrophils % (Manual) Lymphocytes % Lymphocytes % (Manual) Monocytes % Monocytes % (Manual) Eosinophils % Basophils % Band Neutrophils Hypochromia Platelet Estimate Microcytosis Ovalocytes PT INR PTT (SP) Sodium Potassium Chloride Carbon Dioxide Anion Gap BUN Creatinine BUN/Creatinine Ratio Random Glucose Serum Osmolality Lactic Acid 2.8 H* Calcium Magnesium Creatine Kinase CK-MB (CK-2) CK-MB (CK-2) % Troponin I B-Natriuretic Peptide Urine Color Urine Appearance Urine pH Ur Specific Shiro Urine Protein Urine Glucose (UA) Urine Ketones Urine Blood Urine Nitrite Urine Bilirubin Urine Urobilinogen Ur Leukocyte Esterase Urine RBC Urine WBC Ur Epithelial Cells Amorphous Sediment Urine Bacteria CT abdomen and pelvis with contrast on 01/20/2020 CLINICAL INDICATION: Nausea and vomiting, generalized abdominal pain TECHNIQUE: Multiple axial images are obtained throughout the abdomen and pelvis following the administration of IV contrast. This exam was performed according to our departmental dose-optimization program, which includes automated exposure control, adjustment of the mA and/or kV according to patient size and/or use of iterative reconstruction technique. Total DLP is 845.98 mGy*cm. COMPARISON: 03/23/2018 FINDINGS: Abdomen: Mild cardiomegaly is noted. There is a trace right pleural effusion. There is minimal basilar atelectasis. Gallbladder is distended. There is apparent mild gallbladder wall thickening and/or pericholecystic fluid raising question of early changes of acute cholecystitis. Recommend follow-up right upper quadrant ultrasound. Duodenal diverticula are noted along the second portion of the duodenum. Solid abdominal organs are otherwise unremarkable. Vascular calcifications are noted. There is no abdominal adenopathy. There is no free fluid or free air within the abdomen. There is diverticulosis. There is a small umbilical hernia containing only fat. The abdominal portion of the GI tract is otherwise unremarkable. Pelvis: The patient is status post hysterectomy. There is no pelvic adenopathy. There is diverticulosis. There is wall thickening of the sigmoid colon in a region of diverticula with mild adjacent fat stranding consistent with mild acute sigmoid colon diverticulitis. This area is seen well on coronal images 46 through 73. There is no evidence of abscess or perforation. Pelvic portion of the GI tract is otherwise unremarkable. There is no free fluid in the pelvis. Degenerative changes are noted in the spine. IMPRESSION: 1. Findings consistent with mild acute sigmoid colon diverticulitis without evidence of abscess or perforation. 2. Distended gallbladder with an appearance raising a question of very early changes of acute cholecystitis, consider follow-up right upper quadrant ultrasound to better evaluate. Electronically signed by: Mina Junior 01/20/2020 1:16 AM CDT EXAM DESCRIPTION: XR CHEST, 1 VIEW CLINICAL HISTORY: short of breath TECHNIQUE: Single frontal view of the chest is submitted. COMPARISON: 08/09/2018 FINDINGS: Heart: The cardiothoracic silhouette is within normal limits. Lungs: No focal consolidation. Mediastinum: Thoracic aortic atherosclerosis. Pleura: No appreciable effusion. No pneumothorax. Bones: Intact Upper abdomen: Unremarkable IMPRESSION: No acute disease. Electronically signed by: Josseline Hills MD 01/19/2020 10:37 PM CDT EKG performed 19 January 2020 at 2149 hrs. atrial fibrillation with rapid ventricular response with aberrantly conducted complexes at 175 bpm, ST and T wave abnormalities consider inferior ischemia. Abnormal EKG. No comparison EKGs available. Last Vital Signs Temp 100.0 F H 01/20/20 02:00 Pulse 142 H 01/20/20 02:00 Resp 16 01/20/20 02:00 BP 131/103 01/20/20 02:00 Pulse Ox 95 01/20/20 02:00 Vital Signs 01/19/20 01/19/20 01/19/20 21:42 22:00 22:16 Temperature 97 F L Pulse Rate 181 H 137 H Pulse Rate [ 181 H 137 H 124 H left] Respiratory 24 17 Rate Blood Pressure 96/71 89/52 [left] O2 Sat by Pulse 95 94 L Oximetry 01/19/20 01/19/20 01/20/20 22:31 23:00 00:00 Temperature Pulse Rate 118 H Pulse Rate [ 121 H 118 H 115 H left] Respiratory 17 17 17 Rate Blood Pressure 95/62 118/78 132/83 [left] O2 Sat by Pulse 94 L 93 L 92 L Oximetry 01/20/20 01/20/20 01/20/20 00:10 01:00 02:00 Temperature 100.0 F H Pulse Rate 114 H Pulse Rate [ 109 H 142 H left] Respiratory 20 16 Rate Blood Pressure 138/99 131/103 [left] O2 Sat by Pulse 96 95 Oximetry Departure - Departure Clinical Impression: Atrial fibrillation with rapid ventricular response, Diverticulitis, Cholecystitis, Diverticulitis of sigmoid colon Sepsis Qualifiers: Sepsis type: sepsis due to unspecified organism Sepsis acute organ dysfunction status: without acute organ dysfunction Qualified Code(s): A41.9 - Sepsis, unspecified organism Time of Disposition: 02:16 Disposition: Transfer to Hospital Condition: Fair Departure Forms: ED Discharge - Pt. Copy, Patient Portal Self Enrollment Referrals: Uday Moy MD [Primary Care Provider] - 1-2 Weeks Home Medications: Ambulatory Orders Loperamide Cap [Imodium Cap] 4 mg PO QID PRN #20 cap 06/12/14 Lisinopril 40 mg PO DAILY 10/17/14 Carvedilol Phosphate [Coreg Cr] 80 mg PO DAILY 08/09/18 Cholecalciferol [Vitamin D3] 400 unit PO DAILY 08/09/18 Esomeprazole Magnesium [Nexium] 40 mg PO DAILY 08/09/18 Pravastatin Sodium 40 mg PO BEDTIME 08/09/18 Tramadol HCl 50 mg PO Q4H PRN 08/09/18 Acetamin W/Cod #3 Tab [Tylenol w/CODEINE #3] 1 ea PO Q6HR PRN #40 tab 10/21/18 Dicyclomine HCl [Bentyl] 20 mg PO QID PRN 10/21/18 Diphenoxylate W/ Atropine [Lomotil] 2.5 mg PO PRN PRN 10/21/18 Critical Care Note - Critical Care Note Total Time (mins): 65 Transfer to Outside Facility - Transfer Information Decision to Transfer Date: 01/20/20 Decision to Transfer Time: 01:00 Reason for Transfer: ICU Accepting Provider:: Dr. Naresh Garcia Accepting Facility: [facility]
[2020-01-20 02:03] VITALS: TEMP 100; O2SAT 95
[2020-01-20 02:15] VITALS: BP 124/89
== END 2020-01-20 02:27 | disposition short-term general hospital (02) ==
LOC: ER 21:40
DX: A41.9 Sepsis, unspecified organism (principal); I48.91 Unspecified atrial fibrillation; K57.92 Diverticulitis of intestine, part unspecified, without perforation or abscess without bleeding; K81.9 Cholecystitis, unspecified; I50.9 Heart failure, unspecified; I11.0 Hypertensive heart disease with heart failure; R11.2 Nausea with vomiting, unspecified; R10.84 Generalized abdominal pain; Z79.899 Other long term (current) drug therapy
CPT/HCPCS: 71045; 74177; 80048; 81001; 82550; 82553; 83605; 83880; 84484; 85025; 85610; 85730; 87040; 93005; A4216; J0500; J1956; J3010; J7030

== ENCOUNTER → 2020-02-01 | Outpatient (CLI) | payer MEDICARE | LOC: BFHH 11:01 | PROVIDERS: ATTEND Family Medicine | DX: K57.31 Diverticulosis of large intestine without perforation or abscess with bleeding (principal); I48.91 Unspecified atrial fibrillation; R11.0 Nausea; R11.10 Vomiting, unspecified; E87.6 Hypokalemia; M62.81 Muscle weakness (generalized); I10 Essential (primary) hypertension; I50.9 Heart failure, unspecified; K21.0 Gastro-esophageal reflux disease with esophagitis ==

== ENCOUNTER → 2020-03-04 | Outpatient (CLI) | payer MEDICARE | LOC: GMAJ 16:58 | PROVIDERS: ATTEND Family Medicine | DX: Z79.899 Other long term (current) drug therapy (principal); I10 Essential (primary) hypertension; E78.2 Mixed hyperlipidemia; I50.22 Chronic systolic (congestive) heart failure ==

== ENCOUNTER 2020-07-20 10:43 | Emergency (ER) | payer MEDICARE ==
[2020-07-20 11:04] VITALS: TEMP 97.9; O2SAT 97
--- NOTE | 2020-07-20 11:35 | ED.PDOC ---
History of Present Illness - General Chief Complaint: Cardiovascular Problem Stated Complaint: chest and stomach pain Time Seen by Provider: 07/20/20 11:03 Information Source: patient Exam Limitations: other - PATIENT IS POOR HISTORIAN, REQUIRES REPEATED REDIRECTION AND COAXING. - History of Present Illness Initial Comments: PATIENT PRESENTS WITH CHEST PAIN AND RIGHT SHOULDER PAIN X 2 WEEKS SINCE SHE FELL IN SABIANISM. PAIN BEGAN WITH THE FALL, SHE DESCRIBES VAGUE DIFFUSE PAIN IN THE CHEST AND SHOULDER, NO FOCAL PAIN. ALSO, OVER THE LAST 2 DAYS SHE HAS HAD ABDOMINAL PAIN, PARTICULARLY IN THE LLQ, SHE HAS HISTORY OF DIVERTICULITIS AND SHE RELATES THAT THIS FEELS LIKE HER DIVERTICULITIS IN THE PAST. SHE DENIES FEVER. Review of Systems - Review of Systems Constitutional: States: weakness. Denies: chills, diaphoresis, fever, malaise EENTM: States: no symptoms reported. Denies: nose pain, nose congestion, throat pain Respiratory: Denies: no symptoms reported, cough, orthopnea, short of breath, stridor Cardiology: States: see HPI. Denies: syncope Gastrointestinal/Abdominal: States: see HPI. Denies: diarrhea, nausea, vomiting Genitourinary: States: no symptoms reported. Denies: dysuria, frequency, hematuria Neurological: Denies: see HPI, anxiety, depressed, emotional problems Hematologic/Lymphatic: States: no symptoms reported. Denies: anemia, blood clots, easy bleeding Past Medical History (General) - Patient Medical History Hx Seizures: No Hx Stroke: No Hx Asthma: No Hx of COPD: No Hx Cardiac Disorders: Yes - CHF: on Lisinopril, A-FIB Hx Congestive Heart Failure: Yes Hx Pacemaker: No Hx Hypertension: Yes Hx Diabetes: No Hx Gastroesophageal Reflux: Yes Hx Cancer: No Hx Hepatitis C: No Hx MRSA: No Surgical History: appendectomy, tonsillectomy, Hysterectomy - Vaccination History Hx Tetanus, Diphtheria Vaccination: No Hx Influenza Vaccination: Yes Hx Pneumococcal Vaccination: Yes - Social History Hx Tobacco Use: No Hx Alcohol Use: No Hx Substance Use: No Hx Physical Abuse: No Hx Emotional Abuse: No Family Medical History - Family History Father Living Status: Hx Family Hypertension: Yes Hx Family Diabetes: Yes Son Living Status: Still Living Hx Family Asthma: Yes Hx Family Congestive Heart Failure: No Hx Family Hypertension: No Hx Family Stroke: No Hx Cardiac Disease: No Hx Family Diabetes: No Hx Family Cancer: No Physical Exam - Physical Exam General Appearance: Alert, Comfortable, Frail Eyes, Ears, Nose, Throat Exam: PERRL/EOMI, normal ENT inspection, pharynx normal Neck: non-tender, full range of motion, supple Respiratory: chest non-tender, lungs clear, normal breath sounds Cardiovascular/Chest: normal peripheral pulses, regular rate, rhythm, no edema Peripheral Pulses: No deficit, 2+ Gastrointestinal/Abdominal: normal bowel sounds, non tender, soft, no organomegaly Pelvic Exam: normal external exam, normal adnexa, no cerv. motion tender Male Genitalia: normal genitalia, normal prostate, no hernia Rectal Exam: normal exam, normal rectal tone, heme negative stool Back Exam: normal inspection, no CVA tenderness, no vertebral tenderness Extremity: normal range of motion, non-tender, normal inspection Departure - Departure Clinical Impression: Diverticulitis Time of Disposition: 13:07 Disposition: Discharge to Home or Self Care Condition: Good Departure Forms: ED Discharge - Pt. Copy, Patient Portal Self Enrollment Instructions: DI for Chest Pain, Diverticulitis Referrals: Uday Moy MD [Primary Care Provider] - 1-2 Weeks Prescriptions: metroNIDAZOLE [Flagyl] 500 mg PO Q12H #20 tab Levofloxacin [Levaquin] 750 mg PO DAILY #10 tab Home Medications: Ambulatory Orders Loperamide Cap [Imodium Cap] 4 mg PO QID PRN #20 cap 06/12/14 Lisinopril 40 mg PO DAILY 10/17/14 Cholecalciferol [Vitamin D3] 400 unit PO DAILY 08/09/18 Esomeprazole Magnesium [Nexium] 40 mg PO DAILY 08/09/18 Pravastatin Sodium 40 mg PO BEDTIME 08/09/18 Tramadol HCl 50 mg PO Q4H PRN 08/09/18 Acetamin W/Cod #3 Tab [Tylenol w/CODEINE #3] 1 ea PO Q6HR PRN #40 tab 10/21/18 Amiodarone HCl [Amiodarone Hydrochloride] 100 mg PO DAILY 07/20/20 Apixaban [Eliquis] 5 mg PO DAILY 07/20/20 Furosemide 20 mg PO DAILY 07/20/20 Levofloxacin [Levaquin] 750 mg PO DAILY #10 tab 07/20/20 metroNIDAZOLE [Flagyl] 500 mg PO Q12H #20 tab 07/20/20 Additional Instructions: PLEASE SCHEDULE A FOLLOW UP WITH YOUR PCP FOR RECHECK IN NO MORE THAN 48 HOURS.
--- NOTE | 2020-07-20 12:07 | RAD ---
EXAM DESCRIPTION: Shoulder,Right 2 or More Views CLINICAL HISTORY: FALL TRAUMA COMPARISON: None Available. TECHNIQUE: Three x-ray views of the right shoulder. FINDINGS: There is adequate internal and external rotation. Normal glenohumeral alignment on transscapular Y view. There is no fracture or dislocation. Prominent inferiorly projecting osteophyte at the undersurface of the acromion. Degenerative changes of the greater tuberosity. Calcific density overlying the proximal humeral metaphysis may be in the soft tissues. No focal bone lesion. IMPRESSION: Negative for fracture or dislocation. Electronically signed by: Celestino Aponte MD 07/20/2020 12:05 PM [facility]
--- NOTE | 2020-07-20 12:29 | CT ---
EXAM DESCRIPTION: Abdoment/Pelvis w/o Contrast CLINICAL HISTORY: 75 years, Female, LLQ PAIN COMPARISON: Previous CT abdomen and pelvis January 20, 2020 TECHNIQUE: CT of the abdomen and pelvis is performed according to our non contrast protocol. FINDINGS: The lung bases are clear. Heart is enlarged. Bilateral small pleural effusions. Partial volume loss or patchy infiltrate or edema in the lung bases. Patchy consolidation in the paracardiac regions. Liver, spleen, and pancreas are unremarkable. Calcified splenic artery unchanged from previous. No significant sized splenic artery aneurysm with one small calcified segment measuring up to 7.5 mm similar to previous study. Adrenal glands appear normal. The right kidney is unremarkable. The left kidney is unremarkable. No renal stones or hydronephrosis. Small upper pole right renal cyst 1.2 cm. Small bowel loops appear normal in caliber with normal wall thickness. There is no lymphadenopathy, inflammation, or free fluid observed. In the pelvis, the appendix not visualized. No inflammation around the cecum or terminal ileum. Strandy fluid in the inflammatory changes in the fat surrounding the sigmoid colon with mild colonic wall thickening. The lumen is prominently distended by fecal material. Differential considerations would include diverticulitis or segmental colitis. No distinct inflammatory change around a certain diverticulum. No pericolonic abscess or drainable fluid collection. Sigmoid colon. No stones in the distal ureters or bladder. Rectal wall thickness is normal for degree of distention. No free fluid or mass in the pelvis. Uterus and ovaries are not seen, evidently surgically absent. No inguinal or lower pelvic adenopathy. Coronal and sagittal reformatted images confirm the findings. Advanced degenerative disc disease with vacuum disc phenomenon at L3-4 and L5-S1 levels. Coronal reformatted images show elongated liver measuring 20 cm in length with Pranav's lobe configuration. IMPRESSION: Thick-walled segment of sigmoid colon with surrounding inflammation and minimal fluid consistent with colitis or diverticulitis. See above. This exam was performed according to our departmental dose-optimization program, which includes automated exposure control, adjustment of the mA and/or kV according to patient size and/or use of iterative reconstruction technique. Total DLP equals 912.33 mGycm. Electronically signed by: Celestino Aponte MD 07/20/2020 12:28 PM PAPER WOOD CUTTER
--- NOTE | 2020-07-20 12:31 | RAD ---
EXAM DESCRIPTION: Chest,2 Views CLINICAL HISTORY: CHEST PAIN, TRAUMA COMPARISON: Previous study January 19, 2020 TECHNIQUE: PA/lateral FINDINGS: Heart is enlarged with centrally increased pulmonary vascularity. No pleural effusion or pneumothorax. Patchy infiltrate in the lingula with discoid atelectasis in the left lung base. Patchy infiltrate in the right midlung and right lower lung zones. These abnormal areas are new compared to previous and may represent pneumonia. Lateral view shows intact sternum and osteopenic or osteoporotic T-spine. IMPRESSION: Patchy bilateral pulmonary infiltrates consistent with pneumonia. Large heart with centrally increased pulmonary vascularity. Electronically signed by: Celestino Aponte MD 07/20/2020 12:30 PM BIRD CAGE ASSEMBLER
[2020-07-20] MEDS ORDERED: levoFLOXacin 750MG IV 750 MG in PREMIX BAG 1 BAG IVPB ONE (13:02)
[2020-07-20 15:03] VITALS: BP 164/98
== END 2020-07-20 15:03 | disposition home or self-care (01) ==
LOC: ER 10:43
DX: K57.32 Diverticulitis of large intestine without perforation or abscess without bleeding (principal); R07.9 Chest pain, unspecified; M25.511 Pain in right shoulder; I50.9 Heart failure, unspecified; I48.91 Unspecified atrial fibrillation; I11.0 Hypertensive heart disease with heart failure; K21.9 Gastro-esophageal reflux disease without esophagitis; Z90.49 Acquired absence of other specified parts of digestive tract; Z79.899 Other long term (current) drug therapy
CPT/HCPCS: 36415; 71046; 73030; 74176; 80053; 81001; 83605; 83690; 84484; 85025; 87040; 93005; J1956

== ENCOUNTER 2020-08-29 11:09 | Emergency (ER) | payer MEDICARE ==
[2020-08-29] MEDS ORDERED: SODIUM CHLORIDE 0.9% (FLUSH) 10 ML SYG IV PRN (11:18)
--- NOTE | 2020-08-29 11:22 | ED.PDOC ---
History of Present Illness - General Chief Complaint: Respiratory Problem Time Seen by Provider: 08/29/20 11:11 Source: patient, RN notes reviewed, Vital Signs reviewed, RN/MD, old records - History of Present Illness Initial Comments: Pt is a 75 yo female with PMH of afib s/p cardioversion in 04/[address] Valencia, who presents to ED with 3 month h/o feeling short of breath and occasional chest pain. States she was seen by her PCP for this 6 weeks ago and treated for pneumonia with no improvement. States her breathing is worse with walking 2-3 blocks. States she has achy chest pain frequently that is not associated with exertion. Denies fever, chills, NVD or cough. Allergies/Adverse Reactions: Allergies Iodine Allergy (Verified 07/20/20 11:04) Ketorolac Tromethamine [From Toradol] Allergy (Verified 07/20/20 11:04) Penicillins Allergy (Verified 07/20/20 11:04) Tetanus Toxoid Allergy (Verified 07/20/20 11:04) Morphine Adverse Reaction (Mild, Verified 07/20/20 11:04) Headache Home Medications: Ambulatory Orders Loperamide Cap [Imodium Cap] 4 mg PO QID PRN #20 cap 06/12/14 Lisinopril 40 mg PO DAILY 10/17/14 Cholecalciferol [Vitamin D3] 400 unit PO DAILY 08/09/18 Esomeprazole Magnesium [Nexium] 40 mg PO DAILY 08/09/18 Pravastatin Sodium 40 mg PO BEDTIME 08/09/18 Tramadol HCl 50 mg PO Q4H PRN 08/09/18 Acetamin W/Cod #3 Tab [Tylenol w/CODEINE #3] 1 ea PO Q6HR PRN #40 tab 10/21/18 Amiodarone HCl [Amiodarone Hydrochloride] 100 mg PO DAILY 07/20/20 Apixaban [Eliquis] 5 mg PO DAILY 07/20/20 Furosemide 20 mg PO DAILY 07/20/20 Levofloxacin [Levaquin] 750 mg PO DAILY #10 tab 07/20/20 metroNIDAZOLE [Flagyl] 500 mg PO Q12H #20 tab 07/20/20 Review of Systems - Review of Systems Constitutional: States: other - fatigue. Denies: chills, fever EENTM: Denies: nose congestion, throat pain, throat swelling Respiratory: States: short of breath. Denies: cough Cardiology: States: chest pain, edema. Denies: palpitations, syncope Gastrointestinal/Abdominal: Denies: abdominal pain, nausea, vomiting Genitourinary: Denies: dysuria Musculoskeletal: Denies: back pain, muscle pain Neurological: Denies: headache, numbness, paresthesia All other Systems: Reviewed and Negative Past Medical History (General) - Patient Medical History Hx Seizures: No Hx Stroke: No Hx Asthma: No Hx of COPD: No Hx Cardiac Disorders: Yes - CHF: on Lisinopril, A-FIB Hx Congestive Heart Failure: Yes Hx Pacemaker: No Hx Hypertension: Yes Hx Diabetes: No Hx Gastroesophageal Reflux: Yes Hx Cancer: No Hx Hepatitis C: No Hx MRSA: No - Vaccination History Hx Tetanus, Diphtheria Vaccination: No Hx Influenza Vaccination: Yes Hx Pneumococcal Vaccination: Yes - Social History Hx Tobacco Use: No Hx Alcohol Use: No Hx Substance Use: No Hx Physical Abuse: No Hx Emotional Abuse: No Family Medical History - Family History Father Living Status: Hx Family Hypertension: Yes Hx Family Diabetes: Yes Son Living Status: Still Living Hx Family Asthma: Yes Hx Family Congestive Heart Failure: No Hx Family Hypertension: No Hx Family Stroke: No Hx Cardiac Disease: No Hx Family Diabetes: No Hx Family Cancer: No Physical Exam - Physical Exam General Appearance: Alert, Comfortable, No apparent distress Neck: non-tender, full range of motion, supple Respiratory: chest non-tender, lungs clear, normal breath sounds, no respiratory distress, no accessory muscle use Cardiovascular/Chest: regular rate, rhythm, other - Trace pretinbial edema in BLE Gastrointestinal/Abdominal: non tender, soft, no pulsatile mass Extremity: normal range of motion, non-tender, normal inspection, no calf tenderness Neurologic: no motor/sensory deficits, alert, normal mood/affect Skin Exam: normal color, warm/dry Progress - Progress Progress: 08/29/20 13:20 Pt presents to ED with 3 month h/o fatigue and feeling short of breath. O2 sat in ED has been 95-98%. She is ambulatory w/o difficulty. Baseline HGB is 10.5 and is 8.5 today. She denies blood in stool or h/o GI bleed. No indication for emergent transfusion at this time. Pt also has mild CHF with vascular congestion on xray and BNP 1300. I have recommended pt to f/u with her pcp in 1-2 days for further outpatient evaluation of CHF and anemia. her designer and patternmaker is Dr. Valencia and will f/u with him within 1 week for further evaluation. - Results/Orders Results/Orders: CHEST XRAY TECHNIQUE: Chest,1 View Chest radiograph, AP view. HISTORY: MAIN SOB COMPARISON: Chest x-ray July 20, 2020. FINDINGS: Lungs/Pleura: Prominent bilateral pulmonary markings. Subtle airspace opacities in both lung bases. Blunted bilateral costophrenic angle suggests small to moderate pleural effusions. No pneumothorax. Mediastinum, Mary Ellen: Aortic calcifications. Heart: Cardiac silhouette is stable compared to prior. Bones: No suspicious osseous lesions. Soft Tissues: Unremarkable. Other: None. IMPRESSION: * Pulmonary findings suggest pulmonary vascular congestion with mild edema and effusions. Differential diagnosis includes acute pneumonitis and pneumonia. EKG Normal sinus rhythm, rate 74, nml intervals, nonspecific T wave abnormality 08/29/20 11:18 Sodium Chloride 0.9% (Flush) [Saline Flush Syringe] 3 ml IV PRN PRN 08/29/20 11:30 EKG STAT 08/30/20 09:00 Pulse Ox Daily Laboratory Results - last 24 hr 08/29/20 08/29/20 12:14 12:23 WBC 7.5 RBC 3.78 L Hgb 8.5 L Hct 27.7 L MCV 73.3 L MCH 22.5 L MCHC 30.7 L RDW 17.9 H Plt Count 377 MPV 8.7 Absolute Neuts (auto) 5.40 Absolute Lymphs (auto) 1.50 Absolute Monos (auto) 0.40 Absolute Eos (auto) 0.20 Absolute Basos (auto) 0.10 Neutrophils % 71.2 Lymphocytes % 19.6 L Monocytes % 5.4 Eosinophils % 2.6 Basophils % 1.2 Normal RBC Morphology 1+ovalocytes PT 11.8 H INR 1.19 H PTT (SP) 27.9 Sodium 141 Potassium 4.2 Chloride 106 Carbon Dioxide 27 Anion Gap 12.2 BUN 17 Creatinine 0.97 BUN/Creatinine Ratio 17.5 Random Glucose 113 H Serum Osmolality 283.6 Calcium 9.0 Magnesium 1.8 Creatine Kinase 35 CK-MB (CK-2) 1.8 CK-MB (CK-2) % Not Reportable Troponin I 0.02 B-Natriuretic Peptide 1390.0 H* Departure - Departure Clinical Impression: CHF (congestive heart failure) Qualifiers: Heart failure type: unspecified Heart failure chronicity: acute on chronic Qualified Code(s): I50.9 - Heart failure, unspecified Dyspnea Qualifiers: Dyspnea type: shortness of breath Qualified Code(s): R06.02 - Shortness of breath; R06.00 - Dyspnea, unspecified; R06.01 - Orthopnea Time of Disposition: 13:24 Disposition: Discharge to Home or Self Care Condition: Fair Departure Forms: ED Discharge - Pt. Copy, Patient Portal Self Enrollment Diet: resume usual diet Activity: increase activity as tolerated Referrals: Uday Moy MD [Primary Care Provider] - 1-2 Days Home Medications: Ambulatory Orders Loperamide Cap [Imodium Cap] 4 mg PO QID PRN #20 cap 06/12/14 Lisinopril 40 mg PO DAILY 10/17/14 Cholecalciferol [Vitamin D3] 400 unit PO DAILY 08/09/18 Esomeprazole Magnesium [Nexium] 40 mg PO DAILY 08/09/18 Pravastatin Sodium 40 mg PO BEDTIME 08/09/18 Tramadol HCl 50 mg PO Q4H PRN 08/09/18 Acetamin W/Cod #3 Tab [Tylenol w/CODEINE #3] 1 ea PO Q6HR PRN #40 tab 10/21/18 Amiodarone HCl [Amiodarone Hydrochloride] 100 mg PO DAILY 07/20/20 Apixaban [Eliquis] 5 mg PO DAILY 07/20/20 Furosemide 20 mg PO DAILY 07/20/20 Levofloxacin [Levaquin] 750 mg PO DAILY #10 tab 07/20/20 metroNIDAZOLE [Flagyl] 500 mg PO Q12H #20 tab 07/20/20
--- NOTE | 2020-08-29 11:41 | RAD ---
TECHNIQUE: Chest,1 View Chest radiograph, AP view. HISTORY: MAIN SOB COMPARISON: Chest x-ray July 20, 2020. FINDINGS: Lungs/Pleura: Prominent bilateral pulmonary markings. Subtle airspace opacities in both lung bases. Blunted bilateral costophrenic angle suggests small to moderate pleural effusions. No pneumothorax. Mediastinum, Mary Ellen: Aortic calcifications. Heart: Cardiac silhouette is stable compared to prior. Bones: No suspicious osseous lesions. Soft Tissues: Unremarkable. Other: None. IMPRESSION: * Pulmonary findings suggest pulmonary vascular congestion with mild edema and effusions. Differential diagnosis includes acute pneumonitis and pneumonia. Electronically signed by: Eduard Rashid 08/29/2020 11:39 AM [facility]
[2020-08-29 14:16] VITALS: BP 159/96; TEMP 97.9; O2SAT 66
== END 2020-08-29 13:50 | disposition home or self-care (01) ==
LOC: ER 11:09
DX: I50.9 Heart failure, unspecified (principal); R06.02 Shortness of breath; D64.9 Anemia, unspecified; K21.9 Gastro-esophageal reflux disease without esophagitis; I11.0 Hypertensive heart disease with heart failure; I48.91 Unspecified atrial fibrillation; Z20.822 Contact with and (suspected) exposure to COVID-19; Z79.899 Other long term (current) drug therapy; Z79.01 Long term (current) use of anticoagulants; Z91.041 Radiographic dye allergy status; Z88.8 Allergy status to other drugs, medicaments and biological substances; Z88.0 Allergy status to penicillin; Z88.7 Allergy status to serum and vaccine; Z88.5 Allergy status to narcotic agent

== ENCOUNTER → 2020-09-17 | Outpatient (CLI) | payer MEDICARE | LOC: GMAJ 16:46 | PROVIDERS: ATTEND Family Medicine | DX: I10 Essential (primary) hypertension (principal); I50.9 Heart failure, unspecified ==